=== PATIENT | male | born 1955 | race Caucasian/White ===

== ENCOUNTER 2023-04-28 00:20 | Emergency (ER) | payer MEDICARE, SELFPAY ==
[2023-04-28 00:40] VITALS: PULSE 73
[2023-04-28 00:43] VITALS: BP 143/93; PULSE 79; RESP 18; TEMP 36.6; O2SAT 95; BMI 26.5
--- NOTE | 2023-04-28 01:05 | XR_ITS ---
The [address] [address] Patient Name: MONET LEI MRN: [id number] date: 1955 Sex: M Assigned Patient Location: ER Current Patient Location: Accession/Order Number: [id number] Exam Date: 04/28/2023 01:15 Report Date: 04/28/2023 01:40 At the request of: STIVEN MANTILLA Procedure: XR chest 1V EXAMINATION:XR chest 1V INDICATION:syncope COMPARISON:06/08/2022 TECHNIQUE:A single frontal view of the chest is submitted. FINDINGS: The cardiomediastinal silhouette is not enlarged. The pulmonary vascularity is within normal limits. The lungs are clear based on chest radiography. There is no costophrenic angle blunting. XR/XR chest 1V IMPRESSION: Unremarkable plain film examination of the chest. Electronically authenticated by: NORA BRADLEY Date: 04/28/2023 01:40
--- NOTE | 2023-04-28 01:05 | CT_ITS ---
The [address] [address] Patient Name: MONET LEI MRN: [id number] date: 1955 Sex: M Assigned Patient Location: ER Current Patient Location: ER Accession/Order Number: [id number] Exam Date: 04/28/2023 01:15 Report Date: 04/28/2023 01:55 At the request of: STIVEN MANTILLA Procedure: CT head/brain wo con EXAM: CT head/brain wo con, CT cervical spine wo con HISTORY: head injury COMPARISON: None. TECHNIQUE: Nonenhanced CT imaging of the head and cervical spine was performed with sagittal and coronal reconstructions. Dose reduction techniques were achieved by using automated exposure control and/or adjustment of mA and/or kV according to patient size and/or use of iterative reconstruction technique. FINDINGS: CT HEAD: No intracranial hemorrhage, edema, mass effect or midline shift is seen. Mild calcifications are seen in the anterior interhemispheric falx, with no definite parafalcine acute subdural hematoma. A punctate hyperdensity in the anterior third ventricle is noted on image 22 of series 5, possibly a miniscule colloid cyst. Age related brain atrophy is noted. The brain parenchyma, ventricles and extra-axial CSF spaces appear age-appropriate. The calvarium and imaged facial bones appear intact. The paranasal sinuses and mastoid air cells are clear. Small left frontal scalp hematoma is noted with tiny bubbles of subcutaneous air related to overlying scalp laceration. CT CERVICAL SPINE: No acute osseous or articular abnormality is seen. The cervical vertebral bodies are normal in height and alignment. There is postoperative change for remote ACDF at C5-C7 with surgical hardware in good position, normal postoperative alignment, and complete osseous fusion of the C5-C7 vertebral bodies. No hardware loosening or failure is seen. There is fairly advanced degenerative disc disease at C4-C5 and C7-T1. Skull base alignment is normal. The articular facets are normally aligned. On the right, there is severe neural foraminal stenosis at C3-C4 with moderate to moderately severe stenosis at C4-C5. On the left, there is moderate neural foraminal stenosis at C4-C5. No levels of spinal canal stenosis are seen. The lung apices are clear. CT/CT head/brain wo con IMPRESSION: 1. Left frontal scalp hematoma and overlying scalp laceration with tiny bubbles of subcutaneous gas. No underlying calvarial fracture or acute intracranial abnormality. 2. No acute cervical spine findings. Postoperative changes for remote ACDF at C5-C7 are noted, with additional chronic changes as above. Electronically authenticated by: GRANT GOVEA Date: 04/28/2023 01:55
--- NOTE | 2023-04-28 01:05 | ECG_ITS ---
The [facility] Test Date: 2023-04-28 Pat Name: MONET LEI Department: Room: - Gender: Male [employer]: : 1955 Requested By: [id number] Order Number: [id number] Reading MD: THUY SANDS Measurements Intervals Cranks Rate: 73 P: 33 OH: 166 QRS: 7 QRSD: 92 T: -15 QT: 368 QTc: 394 Interpretive Statements 1100 Sinus rhythm 4068 Nonspecific Twave abnormality 8102 Low QRS voltage in chest leads Can't exclude inferior ischemia 9130 borderline ECG No previous ECG available for comparison Electronically Signed On 04-28-2023 20:01:17 EST by THUY SANDS
--- NOTE | 2023-04-28 01:05 | CT_ITS ---
The [address] [address] Patient Name: MONET LEI MRN: [id number] date: 1955 Sex: M Assigned Patient Location: ER Current Patient Location: Accession/Order Number: [id number] Exam Date: 04/28/2023 01:15 Report Date: 04/28/2023 01:55 At the request of: STIVEN MANTILLA Procedure: CT cervical spine wo con EXAM: CT head/brain wo con, CT cervical spine wo con HISTORY: head injury COMPARISON: None. TECHNIQUE: Nonenhanced CT imaging of the head and cervical spine was performed with sagittal and coronal reconstructions. Dose reduction techniques were achieved by using automated exposure control and/or adjustment of mA and/or kV according to patient size and/or use of iterative reconstruction technique. FINDINGS: CT HEAD: No intracranial hemorrhage, edema, mass effect or midline shift is seen. Mild calcifications are seen in the anterior interhemispheric falx, with no definite parafalcine acute subdural hematoma. A punctate hyperdensity in the anterior third ventricle is noted on image 22 of series 5, possibly a miniscule colloid cyst. Age related brain atrophy is noted. The brain parenchyma, ventricles and extra-axial CSF spaces appear age-appropriate. The calvarium and imaged facial bones appear intact. The paranasal sinuses and mastoid air cells are clear. Small left frontal scalp hematoma is noted with tiny bubbles of subcutaneous air related to overlying scalp laceration. CT CERVICAL SPINE: No acute osseous or articular abnormality is seen. The cervical vertebral bodies are normal in height and alignment. There is postoperative change for remote ACDF at C5-C7 with surgical hardware in good position, normal postoperative alignment, and complete osseous fusion of the C5-C7 vertebral bodies. No hardware loosening or failure is seen. There is fairly advanced degenerative disc disease at C4-C5 and C7-T1. Skull base alignment is normal. The articular facets are normally aligned. On the right, there is severe neural foraminal stenosis at C3-C4 with moderate to moderately severe stenosis at C4-C5. On the left, there is moderate neural foraminal stenosis at C4-C5. No levels of spinal canal stenosis are seen. The lung apices are clear. CT/CT cervical spine wo con IMPRESSION: 1. Left frontal scalp hematoma and overlying scalp laceration with tiny bubbles of subcutaneous gas. No underlying calvarial fracture or acute intracranial abnormality. 2. No acute cervical spine findings. Postoperative changes for remote ACDF at C5-C7 are noted, with additional chronic changes as above. Electronically authenticated by: GRANT GOVEA Date: 04/28/2023 01:55
--- NOTE | 2023-04-28 01:07 | ED.SYNCOPE1 ---
HPI - Syncope General Chief Complaint: Syncope Stated Complaint: head injury Time Seen by Provider: 04/28/23 01:00 Source: patient Mode of arrival: walk-in Limitations: no limitations History of Present Illness HPI narrative: patient passed out at home. States he was sitting and coughing. Decided to get up to go to the bathroom and woke up on the floor. Not sure how long he was out. Has a laceration of his forehead. Neck is sore. No chest pain or extremity weakness. No nausea MD complaint: Reports loss of consciousness Related Data Home Medications Medication Instructions Recorded Confirmed loratadine-pseudoephedrine ER 10 1 tab PO DAILY 04/28/23 04/28/23 mg-240 mg tablet,extended [id number] (AllerClear D-24hr) omeprazole magnesium 20 mg 20 mg PO DAILY 04/28/23 04/28/23 tablet,delayed release (Prilosec OTC) Allergies Allergy/AdvReac Type Severity Reaction Status Date / Time No Known Drug Allergies Allergy Verified 04/28/23 00:51 Review of Systems ROS Status of ROS 10 or more systems reviewed and unremarkable except as noted in history and below [facility] Social History Smoking status: Never smoker Exam Constitutional Vital Signs, click to edit/add: Last Vital Signs Temp 98 F 04/28/23 00:43 Pulse 91 H 04/28/23 04:58 Resp 16 04/28/23 04:58 BP 140/94 H 04/28/23 04:58 Pulse Ox 95 04/28/23 04:58 O2 Del Method Room Air 04/28/23 04:58 Common normals: average body habitus, oriented x3, healthy appearing and alert [facility] Face and sinus images: 1. lac Eye Common normals: PERRL and EOMs intact bilaterally Neck & C-Spine Common normals: full ROM, supple and no meningeal signs Respiratory Common normals: normal respiratory effort, no retractions, no use of accessory muscles and clear to auscultation bilaterally Cardio Common normals: regular rate, regular rhythm, S1 normal heart sound and S2 normal heart sound GI Common normals: Normal to inspection, nondistended, normoactive bowel sounds present and soft to palpation Extremity Common normals: normal to inspection and full ROM Neuro Common normals: oriented x3, CN's II-XII intact bilaterally, moves all extremities, no focal motor deficits and no sensory deficits noted Psych Appearance: grossly normal Course Vital Signs Vital signs: Vital Signs Temperature 98 F 04/28/23 00:43 Pulse Rate 79 04/28/23 00:43 Respiratory Rate 18 04/28/23 00:43 Blood Pressure 143/93 H 04/28/23 00:43 Pulse Oximetry 95 04/28/23 00:43 Oxygen Delivery Method Room Air 04/28/23 00:43 Temperature 98 F 04/28/23 00:43 Pulse Rate 91 H 04/28/23 04:58 Respiratory Rate 16 04/28/23 04:58 Blood Pressure 140/94 H 04/28/23 04:58 Pulse Oximetry 95 04/28/23 04:58 Oxygen Delivery Method Room Air 04/28/23 04:58 MDM - Syncope MDM Narrative Medical decision making narrative: patients with syncope while coughing. states he was coughing while sitting in the chair and decided to get up and go to the bathroom while still coughing. Woke up on the floor. believes he struck his head on the edge of the door way. Neck sore. No weakness of his extremities. No nausea or dizziness. CTs brain without acute changes and C-spine without acute changes. lac repaired as above. serial troponin neg. Patient remains asymptomatic and is discharged home Lab Data Labs: Lab Results 04/28/23 04/28/23 Range/Units 01:20 03:57 WBC 4.4 (4.0-11.0) 10^3/uL RBC 4.48 L (4.70-6.10) 10^6/uL Hgb 14.7 (14.0-18.0) g/dL Hct 42.5 (42.0-54.0) % MCV 94.9 H (80.0-94.0) fL MCH 32.8 (25.9-34.0) pg MCHC 34.6 (29.9-35.2) g/dL RDW 11.9 (11.0-15.0) % Plt Count 168 (150-450) 10^3/uL MPV 9.8 (9.5-13.5) fL Neut % (Auto) 51.1 (43.0-75.0) % Lymph % (Auto) 28.8 (20.5-60.0) % [place]win % (Auto) 16.4 H (1.7-12.0) % Eos % (Auto) 2.5 (0.9-7.0) % Baso % (Auto) 0.7 (0.2-2.0) % Neut # (Auto) 2.3 (1.4-6.5) 10^3/uL Lymph # (Auto) 1.3 (1.2-3.8) 10^3/uL Gladwin # (Auto) 0.7 (0.3-0.8) 10^3/uL Eos # (Auto) 0.1 (0.0-0.7) 10^3/uL Baso # (Auto) 0.0 (0.0-0.1) 10^3/uL Abs Immat Gran (auto) 0.02 (0.00-0.03) 10^3/uL Imm/Tot Granulo (auto) 0.5 (0.0-0.5) % D-Dimer 0.31 (<=0.59) mg/L FEU Sodium 137 (136-145) mmol/L Potassium 3.8 (3.5-5.1) mmol/L Chloride 102 (98-107) mmol/L Carbon Dioxide 24.9 (21.0-32.0) mmol/L Anion Gap 13.9 BUN 15.0 (7.0-18.0) mg/dL Creatinine 1.09 (0.70-1.30) mg/dL Est GFR ( Amer) >60 (>=60) Est GFR (Non-Af Amer) >60 (>=60) BUN/Creatinine Ratio 13.8 Glucose 109 H (74-106) mg/dL Calcium 8.3 L (8.5-10.1) mg/dL Troponin I High Sens 8.6 7.8 (4.0-76.1) pg/mL Imaging Data CT scan - head: Radiologist's impression: urban Physician: Tino Young Date of Service: 04/28/23 Procedure(s): CT cervical spine wo con Accession Number(s): [id number] cc: Physician,Non-Staff M.DGalina~ The [address] [address] Patient Name: MONET LEI MRN: [facility]:[id number] date: 1955 Sex: M Assigned Patient Location: ER Current Patient Location: ER Accession/Order Number: [id number] Exam Date: 04/28/2023 01:15 Report Date: 04/28/2023 01:55 At the request of: TINO YOUNG Procedure: CT cervical spine wo con EXAM: CT head/brain wo con, CT cervical spine wo con HISTORY: head injury COMPARISON: None. TECHNIQUE: Nonenhanced CT imaging of the head and cervical spine was performed with sagittal and coronal reconstructions. Dose reduction techniques were achieved by using automated exposure control and/or adjustment of mA and/or kV according to patient size and/or use of iterative reconstruction technique. FINDINGS: CT HEAD: No intracranial hemorrhage, edema, mass effect or midline shift is seen. Mild calcifications are seen in the anterior interhemispheric falx, with no definite parafalcine acute subdural hematoma. A punctate hyperdensity in the anterior third ventricle is noted on image 22 of series 5, possibly a miniscule colloid cyst. Age related brain atrophy is noted. The brain parenchyma, ventricles and extra-axial CSF spaces appear age-appropriate. The calvarium and imaged facial bones appear intact. The paranasal sinuses and mastoid air cells are clear. Small left frontal scalp hematoma is noted with tiny bubbles of subcutaneous air related to overlying scalp laceration. CT CERVICAL SPINE: No acute osseous or articular abnormality is seen. The cervical vertebral bodies are normal in height and alignment. There is postoperative change for remote ACDF at C5-C7 with surgical hardware in good position, normal postoperative alignment, and complete osseous fusion of the C5-C7 vertebral bodies. No hardware loosening or failure is seen. There is fairly advanced degenerative disc disease at C4-C5 and C7-T1. Skull base alignment is normal. The articular facets are normally aligned. On the right, there is severe neural foraminal stenosis at C3-C4 with moderate to moderately severe stenosis at C4-C5. On the left, there is moderate neural foraminal stenosis at C4-C5. No levels of spinal canal stenosis are seen. The lung apices are clear. CT/CT cervical spine wo con IMPRESSION: 1. Left frontal scalp hematoma and overlying scalp laceration with tiny bubbles of subcutaneous gas. No underlying calvarial fracture or acute intracranial abnormality. 2. No acute cervical spine findings. Postoperative changes for remote ACDF at C5-C7 are noted, with additional chronic changes as above. Discharge Plan Discharge Chief Complaint: Syncope Clinical Impression: Cough syncope, Head injury Patient Disposition: Home, Self-Care Time of Disposition Decision: 04:50 Condition: Good Mode of Transportation: Private Vehicle Prescriptions / Home Meds: No Action omeprazole magnesium [Prilosec OTC] 20 mg tablet,delayed release (DR/EC) 20 mg PO DAILY AllerClear D-24hr 10-240 mg tablet extended release 24 hr 1 tab PO DAILY Instructions: Head Injury (ED), Syncope in Older Adults (ED) Additional Instructions: stitches out in 5 days Stand Alone Forms: Portal Instructions Referrals: Physician,Non-Staff, MD [Primary Care Provider] - 1 week Discharge Date/Time: 04/28/23 05:02 Procedures ED Procedure Instructions Procedures Procedures: left forehead lac above eyebrow. 4cm lac into SQ space. No FB seen. 1% lido with epi as a local. Site cleaned with betadine and closed with #6 5.0 nylon stitches. Tolerated well
[2023-04-28 01:33] LABS: Basophils Percent Auto 0.7 % (0.2-2.0); Eosinophils Absolute Auto 0.1 10^3/uL (0.0-0.7); Eosinophils Percent Auto 2.5 % (0.9-7.0); Hematocrit 42.5 % (42.0-54.0); Hemoglobin 14.7 g/dL (14.0-18.0); Immature Granulocytes Abs Auto 0.02 10^3/uL (0.00-0.03); Immature Granulocytes Pct Auto 0.5 % (0.0-0.5); Lymphocytes Absolute Auto 1.3 10^3/uL (1.2-3.8); Lymphocytes Percent Auto 28.8 % (20.5-60.0); Mean Corpuscular HGB Conc 34.6 g/dL (29.9-35.2); Mean Corpuscular Hemoglobin 32.8 pg (25.9-34.0); Mean Corpuscular Volume 94.9 fL (80.0-94.0); Mean Platelet Volume 9.8 fL (9.5-13.5); Monocytes Absolute Auto 0.7 10^3/uL (0.3-0.8); Monocytes Percent Auto 16.4 % (1.7-12.0); Neutrophils Absolute Auto 2.3 10^3/uL (1.4-6.5); Neutrophils Percent Auto 51.1 % (43.0-75.0); Platelet Count 168 10^3/uL (150-450); Red Blood Count 4.48 10^6/uL (4.70-6.10); Red Cell Distribution Width 11.9 % (11.0-15.0); White Blood Count 4.4 10^3/uL (4.0-11.0)
[2023-04-28 01:42] LABS: D Dimer 0.31 mg/L FEU (<=0.59)
[2023-04-28 01:46] LABS: Anion Gap 13.9; BUN Creatinine Ratio 13.8; Calcium 8.3 mg/dL (8.5-10.1); Carbon Dioxide 24.9 mmol/L (21.0-32.0); Chloride 102 mmol/L (98-107); Estimated GFR (African America >60 (>=60); Estimated GFR (Non-African Ame >60 (>=60); Glucose 109 mg/dL (74-106); Potassium 3.8 mmol/L (3.5-5.1); Sodium 137 mmol/L (136-145); Troponin I High Sensitivity 8.6 pg/mL (4.0-76.1)
[2023-04-28] MEDS: ADACEL DIPH,PERTUSS(ACELL),TET VAC/PF 0.5 ML ADULT SYRINGE IM (02:13)
[2023-04-28] MEDS: LIDOCAINE HCL 1%-EPINEPHRINE 1:100,000 20 ML MDV INJ (02:35)
[2023-04-28 03:59] VITALS: BP 143/92; PULSE 86; RESP 16; O2SAT 98
[2023-04-28 04:41] LABS: Troponin I High Sensitivity 7.8 pg/mL (4.0-76.1)
[2023-04-28 04:53] VITALS: BP 140/94; PULSE 91; RESP 16; O2SAT 95
[2023-04-28 04:58] VITALS: BP 140/94; PULSE 91; RESP 16; O2SAT 95
== END 2023-04-28 05:02 | disposition home or self-care (01) ==
PROVIDERS: Emergency Provider Internal Medicine
DX: R55 Syncope and collapse (principal); S01.81XA Laceration without foreign body of other part of head, initial encounter; R05.9 Cough, unspecified; S09.90XA Unspecified injury of head, initial encounter; Z23 Encounter for immunization; W22.8XXA Striking against or struck by other objects, initial encounter; Z79.899 Other long term (current) drug therapy
CPT/HCPCS: 12013; 36415; 70450; 71045; 72125; 80048; 84484; 85025; 85378; 90471; 90715; 93005; 99285

== ENCOUNTER 2023-06-25 09:58 | Outpatient (OUT) | payer MEDICARE, SELFPAY ==
--- OUTSIDE RECORDS SUMMARY | 2023-06-25 10:02 | XMS_ITS | CCD ---
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 Name Role Phone LORENA, DR RENNY Neal Attending Unavailable ZiebRuben worrell Consulting Unavailable NADERER, DR RENNY Neal Primary Care Unavailable NADERER, DR RENNY Neal Admitting Unavailable NADERER, DR RENNY Neal Consulting Unavailable NADERER, DR RENNY Neal Attending Unavailable NADERER, DR RENNY Neal Consulting Unavailable NADERER, DR RENNY Neal Primary Care Unavailable NADERER, DR RENNY Neal Admitting Unavailable NADERER, DR RENNY Neal Primary Care Unavailable Ruben Quach Consulting Unavailable NADERER, DR RNENY Neal Admitting Unavailable NADERER, DR RENNY Neal Attending Unavailable NADERER, DR RENNY Neal Consulting Unavailable NADERER, RENNY Attending Unavailable Problems Active Problems Problem Classification Problem Date Documented Da te Episodic/Chronic Disorders of lipid metabolism (1 source) Hyperlipidemia, unspecified; Translations: [HYPERLIPIDEMIA UNSPECIFIED] Onset: 06-15-2022 Chronic Other lower respiratory disease (4 sources) Shortness of breath; Translations: [SHORTNESS OF BREATH] Onset: 07-03-2022 Episodic Other nervous system disorders (1 source) Other chronic pain; Translations: [OTHER CHRONIC PAIN] Onset: 09-27-2022 Chronic Other non-traumatic joint disorders (4 sources) Pain in left knee; Translations: [PAIN IN LEFT KNEE] Onset: 09-24-2022 Episodic Unclassified (1 source) COUGH, UNSPECIFIED; Translations: [COUGH, UNSPECIFIED] Onset: 06-15-2022 Past or Other Problems Problem Classification Problem Date Documented Da te Episodic/Chronic Other aftercare (4 sources) 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; Translations: [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 Digna Ndiaye Basophils/100 WBC (Bld) 0.6 % Normal 0.2-2.0 [facility] Comment on above: Performed By: #### C BC #### [facility] [address] [address] [address] Digna Ndiaye EO # 0.3 103/ul Normal 0.0-0.7 [facility] Comment on above: Performed By: #### C BC #### [facility] [address] [address] [address] Digna Ndiaye Eosinophils/100 WBC (Bld) 5.1 % Normal 0.9-7.0 [facility] Comment on above: Performed By: #### C BC #### [facility] [address] [address] [address] Digna Ndiaye Erythrocyte distribution width (RBC) [Ratio] 11.7 % Normal 11.0-15.0 [facility] Comment on above: Performed By: #### C BC #### [facility] [address] [address] [address] Digna Ndiaye Hematocrit (Bld) [Volume fraction] 51.3 % Normal 42.0-54.0 [facility] Comment on above: Performed By: #### C BC #### [facility] [address] [address] [address] Digna Ndiaye Hemoglobin (Bld) [Mass/Vol] 16.3 g/dL Normal 14.0-18.0 [facility] Comment on above: Performed By: #### C BC #### [facility] [address] [address] [address] Digna Ndiaye IG # 0.01 10e3/ul Normal 0.00-0.03 [facility] Comment on above: Performed By: #### C BC #### [facility] [address] [place] [address] Dr. Digna Ndiaye IG % 0.2 % Normal 0.0-0.5 [facility] Comment on above: Performed By: #### C BC #### [facility] [address] [place] [address] Dr. Digna Ndiaye LYMPH # 1.4 103/ul Normal 1.2-3.8 [facility] Comment on above: Performed By: #### C BC #### [facility] [address] [place] [address] Dr. Digna Ndiaye Lymphocytes/100 WBC (Bld) 26.5 % Normal 20.5-60.0 [facility] Comment on above: Performed By: #### C BC #### [facility] [address] [place] [address] Dr. Digna Ndiaye MANUAL DIFF REQ NO Normal [facility] Comment on above: Performed By: #### C BC #### [facility] [address] [place] [address] Dr. Digna Ndiaye MCH (RBC) [Entitic mass] 31.9 pg Normal 25.9-34.0 [facility] Comment on above: Performed By: #### C BC #### [facility] [address] [place] [address] Dr. Digna Ndiaye MCHC (RBC) [Mass/Vol] 31.8 g/dL Normal 29.9-35.2 [facility] Comment on above: Performed By: #### C BC #### [facility] [address] [place] [address] Dr. Digna Ndiaye MCV (RBC) [Entitic vol] 100.4 fL Critically high 80.0-94.0 [facility] Comment on above: Performed By: #### C BC #### [facility] [address] [place] [address] Dr. Digna Ndiaye MONO # 0.6 103/ul Normal 0.3-0.8 [facility] Comment on above: Performed By: #### C BC #### [facility] [address] [address] [address] Digna Ndiaye Monocytes/100 WBC (Bld) 11.9 % Normal 1.7-12.0 [facility] Comment on above: Performed By: #### C BC #### [facility] [address] [address] [address] Digna Ndiaye NEUT # 2.9 103/ul Normal 1.4-6.5 [facility] Comment on above: Performed By: #### C BC #### [facility] [address] [address] [address] Digna Ndiaye Neutrophils/100 WBC (Bld) 55.7 % Normal 43.0-75.0 [facility] Comment on above: Performed By: #### C BC #### [facility] [address] [place] [address] Dr. Digna Ndiaye Platelet mean volume (Bld) [Entitic vol] 10.2 fL Normal 9.5-13.5 [facility] Comment on above: Performed By: #### C BC #### [facility] [address] [place] [address] Dr. Digna Ndiaye PLT 207 103/ul Normal 150-450 [facility] Comment on above: Performed By: #### C BC #### [facility] [address] [place] [address] Dr. Digna Ndiaye RBC 5.11 106/ul Normal 4.70-6.10 [facility] Comment on above: Performed By: #### C BC #### [facility] [address] [place] [address] Dr. Digna Ndiaye WBC 5.1 103/ul Normal 4.0-11.0 [facility] Comment on above: Performed By: #### C BC #### [facility] [address] [place] [address] Dr. Digna Ndiaye LIPID PROFILEon 06-08-2022 CHOL-HDL RATIO NORM SEE BELOW Normal [facility] Comment on above: Result Comment: 3.3 - 4.4 LOW RISK 4.4 - 7.1 AVERAGE RISK 7.1 - 11.0 MODERATE RISK >11.0 HIGH RISK Performed By: #### B MP, LIPID, LIVER #### [facility] [address] [address] [address] Digna Ndiaye Cholesterol [Mass/Vol] 219 mg/dL Critically high <=200 [facility] Comment on above: Performed By: #### B MP, LIPID, LIVER #### [facility] [address] [address] [address] Digna Ndiaye Cholesterol in HDL [Mass/Vol] 34 mg/dL Critically low 40-60 [facility] Comment on above: Performed By: #### B MP, LIPID, LIVER #### [facility] [address] [address] [address] Digna Ndiaye Cholesterol in LDL [Mass/Vol] 114.2 mg/dL Normal [facility] Comment on above: Performed By: #### B MP, LIPID, LIVER #### [facility] [address] [place] [address] Dr. Digna Ndiaye Cholesterol.total/C holesterol in HDL [Mass ratio] 6.4 {ratio} Normal [facility] Comment on above: Performed By: #### B MP, LIPID, LIVER #### [facility] [address] [place] [address] Dr. Digna Ndiaye HDL NORMAL > or = 60 mg/dl - LO W CARDIOVASCULAR RISK <40 mg/dl - HIGH CARDIOVASCULAR RISK Normal [facility] Comment on above: Performed By: #### B MP, LIPID, LIVER #### [facility] [address] [address] [address] Digna Ndiaye LDL CALC NORMAL SEE BELOW Normal [facility] Comment on above: Result Comment: <100 mg/dl OPTIMAL 100 - 129 mg/dl NEAR OR ABOVE OPTIMAL 130 - 159 mg/dl BORDERLINE HIGH 160 - 189 mg/dl HIGH >190 mg/dl VERY HIGH Performed By: #### B MP, LIPID, LIVER #### [facility] [address] [address] [address] Digna Ndiaye Triglyceride [Mass/Vol] 354 mg/dL Critically high <=150 [facility] Comment on above: Performed By: #### B MP, LIPID, LIVER #### [facility] [address] [address] [address] Digna Ndiaye VLDL CALC 70.8 mg/dL Normal [facility] Comment on above: Performed By: #### B MP, LIPID, LIVER #### [facility] [address] [address] [address] Digna Ndiaye LIVER PROFILEon 06-08-2022 Albumin [Mass/Vol] 3.7 g/dL Normal 3.4-5.0 [facility] Comment on above: Performed By: #### B MP, LIPID, LIVER #### [facility] [address] [place] [address] Dr. Digna Ndiaye Albumin/Globulin [Mass ratio] 1.1 {ratio} Normal [facility] Comment on above: Performed By: #### B MP, LIPID, LIVER #### [facility] [address] [place] [address] Dr. Digna Nidaye ALP [Catalytic activity/Vol] 82 U/L Normal 46-116 [facility] Comment on above: Performed By: #### B MP, LIPID, LIVER #### [facility] [address] [place] [address] Dr. Digna Ndiaye ALT [Catalytic activity/Vol] 29 U/L Normal 16-63 [facility] Comment on above: Performed By: #### B MP, LIPID, LIVER #### [facility] [address] [place] [address] Dr. Digna Ndiaye AST [Catalytic activity/Vol] 23 U/L Normal 15-37 [facility] Comment on above: Performed By: #### B MP, LIPID, LIVER #### [facility] [address] [place] [address] Dr. Digna Ndiaye BILI, CONJUGATED 0.1 mg/dL Normal 0.0-0.2 [facility] Comment on above: Performed By: #### B MP, LIPID, LIVER #### [facility] [address] [place] [address] Dr. Digna Ndiaye Bilirubin [Mass/Vol] 0.3 mg/dL Normal 0.2-1.0 [facility] Comment on above: Performed By: #### B MP, LIPID, LIVER #### [facility] [address] [address] [address] Digna Ndiaye Globulin (S) [Mass/Vol] 3.5 g/dL Normal [facility] Comment on above: Performed By: #### B MP, LIPID, LIVER #### [facility] [address] [place] [address] Dr. Digna Ndiaye Protein [Mass/Vol] 7.2 g/dL Normal 6.4-8.2 [facility] Comment on above: Performed By: #### B MP, LIPID, LIVER #### [facility] [address] [place] [address] Dr. Digna Ndiaye PROF CHEM 8 (BAS METB)on Anion gap [Moles/Vol] 11.1 mmol/L Normal [facility] Comment on above: Performed By: #### B MP, LIPID, LIVER #### [facility] [address] [place] [address] Dr. Digna Ndiaye Calcium [Mass/Vol] 9.0 mg/dL Normal 8.5-10.1 [facility] Comment on above: Performed By: #### B MP, LIPID, LIVER #### [facility] [address] [place] [address] Dr. Digna Ndiaye Chloride [Moles/Vol] 104 mmol/L Normal 98-107 [facility] Comment on above: Performed By: #### B MP, LIPID, LIVER #### [facility] [address] [place] [address] Dr. Digna Ndiaye CO2 [Moles/Vol] 31.6 mmol/L Normal 21.0-32.0 [facility] Comment on above: Performed By: #### B MP, LIPID, LIVER #### [facility] [address] [place] [address] Dr. Digna Ndiaye Creatinine [Mass/Vol] 1.19 mg/dL Normal 0.70-1.30 [facility] Comment on above: Performed By: #### B MP, LIPID, LIVER #### [facility] [address] [address] [address] Digna Ndiaye EGFR-AF QATARI >60 Normal >=60 [facility] Comment on above: Performed By: #### B MP, LIPID, LIVER #### [facility] [address] [address] [address] Digna Ndiaye EGFR-NON AF QATARI >60 Normal >=60 [facility] Comment on above: Performed By: #### B MP, LIPID, LIVER #### [facility] [address] [address] [address] Digna Ndiaye Glucose [Mass/Vol] 104 mg/dL Normal 74-106 [facility] Comment on above: Performed By: #### B MP, LIPID, LIVER #### [facility] [address] [place] [address] Dr. Digna Ndiaye Potassium [Moles/Vol] 3.7 mmol/L Normal 3.5-5.1 [facility] Comment on above: Performed By: #### B MP, LIPID, LIVER #### [facility] [address] [place] [address] Dr. Digna Ndiaye Sodium [Moles/Vol] 143 mmol/L Normal 136-145 [facility] Comment on above: Performed By: #### B MP, LIPID, LIVER #### [facility] [address] [place] [address] Dr. Digna Ndiaye Urea nitrogen [Mass/Vol] 12.0 mg/dL Normal 7.0-18.0 [facility] Comment on above: Performed By: #### B MP, LIPID, LIVER #### [facility] [address] [place] [address] Dr. Digna Ndiaye Urea nitrogen/Creatinine [Mass ratio] 10.1 mg/mg Normal [facility] Comment on above: Performed By: #### B MP, LIPID, LIVER #### [facility] [address] [place] [address] Dr. Digna Ndiaye XR CHEST 2 Von 06-08-2022 XR CHEST 2 V EXAMINATION: XR CHES T 2 V HISTORY: Cough , shortness of breath COMPARISON: No relevant comparison available. FINDINGS: LUNGS: No significant pulmonary parenchymal abnormalities. VASCULATURE: No increased pulmonary vasculature. PLEURA: No pneumothorax, effusion, or pleural thickening. CARDIAC: No cardiomegaly or cardiac silhouette abnormality. MEDIASTINUM: No visible mass or adenopathy. BONES: Mechanical fusion of lower cervical spine. OTHER: Negative. IMPRESSION: 1. No acute cardiopulmonary process or significant chronic interstitial changes. Electronically authenticated by: RUBEN QUACH Date: 2022-06-08 15:45 Normal [facility] Encounters Encounter Date Encounter Type Care Provider Facility Start: 05-03-2023 End: 05-03-2023 ambulatory RENNY CARRILLO Not Available Start: 09-24-2022 End: 09-25-[address] RENNY CARRILLO Facility:[facility] Start: 07-03-2022 End: 07-04-[address] RENNY CARRILLO Facility:[facility] Start: 06-08-2022 End: 06-09-[address] RENNY CARRILLO Facility:[facility] Procedures Date Procedure Procedure Detail Performing Clinician Start: 06-08-[address] RENNY KAHN Comment on above: Performed By: #### [facility] #### [facility] [address] [place] [address] Dr. Digna Ndiaye Payers Date Payer Category Payer Unknown [id number] 1955 Unknown [id number] 1955 Unknown [id number] 1955 Unknown [id number] 1955 Unknown [id number] Clinical Note 09-25-2022 Note Date & Type Note Facility 09-25-2022 Note PROCEDURE: XR KNEE L T 3V HISTORY: Pain of left knee joint , chronic COMPARISON: None. FINDINGS: BONES:Minimal narrowing of the medial joint space. Tiny degenerative osteophytes along the articular margins of the patella. No fracture, dislocation, bone lesion. SOFT TISSUES:No visible soft tissue swelling. EFFUSION:None visible. OTHER: Negative. IMPRESSION: 1. Mild degenerative changes. No acute abnormality. Electronically authenticated by: RUBEN QUACH Date: 2022-09-25 07:03 [facility] Summary Purpose Family History No Family History Records FoundNo Family History Records Found Advance Directives No Advanced Directives Records FoundNo Advanced Directives Records Found Additional Source Comments (unrecognized sect ion and content) No Status Records FoundNo Status Records Found INFORMATION SOURCE (unrecogn ized section and content) DATE CREATED AUTHOR 09/28/[address] [facility] p[facility] DATE CREATED AUTHOR AUTHOR'S ORGANIZ ATION 05/05/2023 [facility] EPIC FOR RECORDS PERTAINING TO PATIENTS WHO ARE OR HAVE BEEN ENROLLED IN A CHEMICAL DEPENDENCY/SUBSTANCEABUSE PROGRAM, SOME INFORMATION MAY BE OMITTED. This clinical summary was aggregated from multiple sources. Caution should be exercised in using it in the provision of clinical care. This summary normalizes information from multiple sources, and as a consequence, information in this document may materially change the coding, format and clinical context of patient data. In addition, data may be omitted in some cases. CLINICAL DECISIONS SHOULD BE BASED ON THE PRIMARY CLINICAL RECORDS. [facility] [employer] [facility]. provides no warranty or guarantee of the accuracy or completeness of information in this document.
[2023-06-25 10:19] LABS: Basophils Percent Auto 0.4 % (0.2-2.0); Eosinophils Absolute Auto 0.2 10^3/uL (0.0-0.7); Eosinophils Percent Auto 4.6 % (0.9-7.0); Hematocrit 46.5 % (42.0-54.0); Immature Granulocytes Abs Auto 0.02 10^3/uL (0.00-0.03); Immature Granulocytes Pct Auto 0.4 % (0.0-0.5); Lymphocytes Absolute Auto 1.4 10^3/uL (1.2-3.8); Lymphocytes Percent Auto 30.8 % (20.5-60.0); Mean Corpuscular HGB Conc 34.4 g/dL (29.9-35.2); Mean Corpuscular Hemoglobin 32.4 pg (25.9-34.0); Mean Corpuscular Volume 94.1 fL (80.0-94.0); Mean Platelet Volume 9.7 fL (9.5-13.5); Monocytes Absolute Auto 0.7 10^3/uL (0.3-0.8); Monocytes Percent Auto 16.1 % (1.7-12.0); Neutrophils Absolute Auto 2.2 10^3/uL (1.4-6.5); Neutrophils Percent Auto 47.7 % (43.0-75.0); Platelet Count 170 10^3/uL (150-450); Red Blood Count 4.94 10^6/uL (4.70-6.10); Red Cell Distribution Width 11.8 % (11.0-15.0); White Blood Count 4.6 10^3/uL (4.0-11.0)
[2023-06-25 10:38] LABS: Alanine Aminotransferase 32 U/L (16-63); Albumin Level 3.6 g/dL (3.4-5.0); Alkaline Phosphatase 83 U/L (46-116); Anion Gap 12.1; Aspartate Amino Transferase 26 U/L (15-37); Bilirubin Direct 0.1 mg/dL (0.0-0.2); Bilirubin Total 0.6 mg/dL (0.2-1.0); Carbon Dioxide 26.1 mmol/L (21.0-32.0); Chloride 103 mmol/L (98-107); Chol HDL Ratio 5.7; Cholesterol 274 mg/dL (<=200); Estimated GFR (African America >60 (>=60); Estimated GFR (Non-African Ame >60 (>=60); Globulin 3.7 g/dL; Glucose 104 mg/dL (74-106); HDL Cholesterol 48 mg/dL (40-60); Potassium 4.2 mmol/L (3.5-5.1); Sodium 137 mmol/L (136-145); Total Protein 7.3 g/dL (6.4-8.2); Triglycerides 216 mg/dL (<=150); VLDL CHOLESTEROL 43.2 mg/dL
[2023-06-25 12:00] LABS: Prostate Specific Antigen Dx 0.26 ng/mL (<=4.00)
== END 2023-06-25 09:59 | disposition home or self-care (01) ==
LOC: LAB 09:59
PROVIDERS: PCP Family Medicine; Visit Provider Family Medicine
DX: E78.5 Hyperlipidemia, unspecified (principal); Z79.899 Other long term (current) drug therapy; Z12.5 Encounter for screening for malignant neoplasm of prostate
CPT/HCPCS: 36415; 80048; 80061; 80076; 84153; 85025

== ENCOUNTER 2023-09-17 09:12 | Outpatient (OUT) | payer MEDICARE, SELFPAY ==
[2023-09-17 09:46] LABS: Estimated GFR (African America >60 (>=60); Estimated GFR (Non-African Ame >60 (>=60)
== END 2023-09-17 09:13 | disposition home or self-care (01) ==
LOC: LAB 09:13
PROVIDERS: PCP Family Medicine; Visit Provider Otolaryngology
DX: H90.3 Sensorineural hearing loss, bilateral (principal)
CPT/HCPCS: 36415; 82565